=== PATIENT | female | born 1965 | race Caucasian/White ===

== ENCOUNTER 2024-11-11 16:09 | Inpatient (IN) | payer MEDICAID, OTHER ==
[~2024-11-11] VITALS: Ht 160 cm; Wt 77.3 kg
--- NOTE | 2024-11-11 16:19 | ED.PDOC ---
History of Present Illness HPI Comments 69-year-old female brought by paramedics because she was found unconscious hour ago by friends that she lives with. Friends thought she had a lost pulses so they started CPR. She was given Narcan prior to studio hand arrival. When paramedics arrived patient was answering questions. Patient is still confused. She did have methamphetamine prior to losing consciousness. Unable to get history from the patient. She denies taking any medication for any medical condition. 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 History Social History Smoker: Cigarettes Alcohol: Denies ETOH Use Drugs: Methamphetamine Unable to Obtain due to: Altered Mental Status Physical Exam General Appearance: Moderate Distress HEENT: Normal ENT Inspection, Pharynx Normal, TMs Normal Neck: Full Range of Motion, Non-Tender, Normal, Normal Inspection Respiratory: Chest Non-Tender, Lungs Clear, No Accessory Muscle Use, No Respiratory Distress, Normal Breath Sounds Cardiovascular: No Edema, No JVD, No Murmur, No Gallop, Normal Peripheral Pulses, Regular Rate/Rhythm Breast Exam: Deferred Gastrointestinal: No Organomegaly, Non Tender, No Pulsatile Mass, Normal Bowel Sounds, Soft Genitalia: Deferred Pelvic: Deferred Rectal: Deferred Extremities: No pedal edema Musculoskeletal : Apperance: Normal Neurologic: Disoriented Cerebellar Function: NOT DONE Reflexes: NOT DONE Skin: Normal Color Peripheral Pulses: 3+ Radial (R), 3+ Radial (L) Lymphatic: No Adenopathy Was a procedure done? Was a procedure done?: No EKG EKG : Pulse Rate (adult): 80 [place]: Normal Cardiac Rhythm: NSR Differential Dx Considerations may include: Drug use Electrolyte imbalance X-Ray, Labs, Meds, VS Vital Signs Date Time Temp Pulse Resp B/P (MAP) Pulse Ox O2 Delivery O2 Flow Rate FiO2 11/11/24 16:19 80 11/11/24 16:15 80 11/11/24 16:13 98.2 92 16 129/78 (95) 97 98.2 Lab Test 11/11/24 16:33 Range/Units White Blood Count Pending Red Blood Count Pending Hemoglobin Pending Hematocrit Pending Mean Corpuscular Volume Pending Mean Corpuscular Hemoglobin Pending Mean Corpuscular Hemoglobin Concent Pending Red Cell Distribution Width Pending Platelet Count Pending Mean Platelet Volume Pending Neutrophils (%) (Auto) Pending Lymphocytes (%) (Auto) Pending Monocytes (%) (Auto) Pending Basophils (%) (Auto) Pending Neutrophils # (Auto) Pending Lymphocytes # (Auto) Pending Monocytes # (Auto) Pending Plasma/Serum Blood Alcohol Pending Patient disoriented. Meth use. Vitals stable. Blood pressure within normal limits. Heart rate normalized. Saturation normalized. Unable to get history. Establish intravenous access. Was given fluids. Was given Narcan. Waiting for family. Continue to monitor. EKG reviewed does not show any acute changes. Time of 1ST Reevaluation: 16:19 Reevaluation 1ST: Unchanged Patient Education/Counseling: Other (Disoriented) Family Education/Counseling: No Family Present Departure 1 Departure Time of Disposition: 16:19 Impression: Primary Impression: Metabolic encephalopathy Additional Impression: Methamphetamine use Disposition: ADMITTED INPATIENT Admit to: Med Surg Condition: Guarded Critical Care Note Critical Care Time?: Yes (45 min-critical care time only) Critical care comment: Disoriented Narcan Stability Stability form required: No Heart Score Heart Score: Heart Score Response (Comments) Value History Slightly Suspicious 0 EKG Normal 0 Age >65 2 Risk Factors 1 or 2 risk factors 1 Troponin Normal limit 0 Total 3 CHRISTINA EASTMAN MD Nov 11, 2024 16:19
[2024-11-11 16:48] LABS: Basophils # (auto) 0.1 10 ^3/uL (0-0.2); Basophils % (auto) 1.2 % (0.0-2.0); Eosinophils # (auto) 0.3 10 ^3/uL (0-0.8); Eosinophils % (auto) 2.8 % (0.0-7.0); Hematocrit 40.7 % (36.0-46.0); Hemoglobin 13.2 g/dL (12.2-16.2); Lymphocytes # (auto) 1.9 10 ^3/uL (0.4-5.4); Lymphocytes % (auto) 19.3 % (10.0-50.0); Mean Corpuscular Hemoglobin 28.4 pg (28.0-32.0); Mean Corpuscular Hgb Conc. 32.3 g/dL (32.0-36.0); Monocytes # (auto) 0.4 10 ^3/uL (0-1.3); Monocytes % (auto) 4.2 % (0.0-12.0); Neutrophils # (auto) 7.2 10 ^3/uL (1.6-8.6); Neutrophils % (auto) 72.5 % (37.0-80.0); Platelet Count (auto) 348 10^3/uL (140-450); Red Blood Cells 4.63 10^6/uL (4.0-5.20); Red Cell Distribution Width 15.8 % (11.8-14.3)
[2024-11-11] MEDS: NALOXONE HCL 1MG/ML 2ML SYRINGE IV ONE (17:15)
[2024-11-11] MEDS: ONDANSETRON HCL 4 MG/2 ML VIAL IV ONE (17:16)
[2024-11-11] MEDS: SODIUM CHLORIDE 0.9% 1,000 ML IVB ONE (17:16)
[2024-11-11 17:33] VITALS: PULSE 77; RESP 14; O2SAT 96
--- NOTE | 2024-11-11 17:34 | DVH ---
CHEST RADIOGRAPH Indication: sob Technique: Single frontal view of the chest was obtained COMPARISON: None FINDINGS: Lines and Tubes: None Lungs: Clear Pleura: No effusion. No pneumothorax. Cardiomediastinal contours: Unremarkable Bones: Unremarkable IMPRESSION: No abnormality demonstrated.
--- NOTE | 2024-11-11 17:41 | DVH ---
CT HEAD WITHOUT CONTRAST INDICATION: altered COMPARISON: None TECHNIQUE: CT of the head without intravenous contrast. RADIATION DOSE: CTDIvol: mGy, DLP: mGy*cm FINDINGS: There is no evidence of intracranial hemorrhage, infarct, extra-axial collection, mass effect, midli ne shift, herniation or hydrocephalus. The ventricles, sulci and cisterns are normal. The michael-white differentiation is normal. Visualized paranasal sinuses and mastoid air cells are clear. Soft tissues and osseous structures are unremarkable. IMPRESSION: No intracranial abnormality identified.
[2024-11-11 18:32] LABS: Amphetamine Screen, Urine Pos (NEGATIVE); Barbiturate Scree,Urine Neg (NEGATIVE); Benzodiazephine Screen, Urine Neg (NEGATIVE); Cannabinoid Screen, Urine Neg (NEGATIVE); Cocaine Screen, Urine Neg (NEGATIVE); Opiate Scree,Urine Neg (NEGATIVE); Phencyclidine Screen, Urine Neg (NEGATIVE)
[2024-11-11 18:37] LABS: Urine Bacteria FEW /hpf (None Seen); Urine Blood Negative /uL (Negative); Urine Budding Yeast OCCASIONAL /hpf (None Seen); Urine Clarity Clear (Clear); Urine Color Yellow (Yellow); Urine Hyaline Cast FEW /lpf (0 - 2); Urine Mucus FEW (None Seen); Urine Protein, UAD TRACE (Negative); Urine Specific Gravity 1.024 (1.001-1.035); Urine Squamous Epithelial Cell FEW /hpf (<5); Urine Urobilinogen Normal (Negative); Urine WBC 9 /HPF (0-5); Urine pH 5.5 (5.0-9.0)
[2024-11-11] MEDS: SODIUM CHLORIDE 0.9% 1,000 ML IV ONE (19:30)
[2024-11-11 19:45] VITALS: PULSE 83; RESP 12; O2SAT 99
--- NOTE | 2024-11-11 23:56 | ECG ---
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
--- NOTE | 2024-11-12 01:05 | DVHHP2 ---
History of Present Illness Reason for Visit: Altered mental status History of Present Illness 69-year-old year old female presents for evaluation of altered mental status. Patient was found unresponsive by friends that she lives with. CPR was initiated. On the feel patient was given Narcan with positive response. Patient is currently alert oriented answering questions. No headache or blurred vision. No unilateral weakness. No chest pain or shortness for breath. Past Medical History Denies Past Surgical History Denies Family History Noncontributory Smoke: <1 pack per day ALCOHOL: occassional Drugs: Other (Amphetamine) Review of Systems Review of Systems Review of systems are currently negative otherwise addressed in HPI. Allergies: Coded Allergies: NO KNOWN ALLERGIES (Unverified , 11/11/24) Medications Current Medications Medications Dose Ordered Sig/Nayely Route Start Time Stop Time Status Last Admin Dose Admin Ondansetron HCl 4 mg Q4HP PRN IV 11/11/24 19:30 Exam Vital Signs Vital Signs Date Time Temp Pulse Resp B/P (MAP) Pulse Ox O2 Delivery O2 Flow Rate FiO2 11/12/24 00:15 76 11/12/24 00:00 18 122/83 (96) 100 11/11/24 19:45 Room Air* 0 21 11/11/24 17:33 98.2 98.2 Exam Gen: 69-year-old female in no apparent distress Skin: Warm, dry, normal color and texture, no rash. HEENT: Normocephalic atraumatic, mucous membranes moist and pink. Neck: Cervical and supraclavicular nodes normal without enlargement, trachea is midline, thyroid gland is normal without masses. Pulmonary: Clear to auscultation and percussion bilaterally. Cardiac: Regular rate and rhythm. No murmur Abdomen: Soft, nontender, nondistended, bowel sounds present all 4 quadrants, no guarding, no rigidity, no organomegaly. Extremities: No cyanosis, clubbing, no edema Neuro: Cranial nerves II through XII grossly intact, normal affect and speech, no focal motor deficits. Labs/Xrays ORDERING PHYSICIAN: CHRISTINA EASTMAN MD PROCEDURE(s): CXRP - CHEST PORTABLE REASON: sob ORDER NUMBER(s): [id number], ACCESSION NUMBER(s): [id number] CHEST RADIOGRAPH Indication: sob Technique: Single frontal view of the chest was obtained COMPARISON: None FINDINGS: Lines and Tubes: None Lungs: Clear Pleura: No effusion. No pneumothorax. Cardiomediastinal contours: Unremarkable Bones: Unremarkable IMPRESSION: No abnormality demonstrated. RING PHYSICIAN: CHRISTINA EASTMAN MD PROCEDURE(s): HWOCT - HEAD WITHOUT CONTRAST REASON: altered ORDER NUMBER(s): [id number], ACCESSION NUMBER(s): [id number] CT HEAD WITHOUT CONTRAST INDICATION: altered COMPARISON: None TECHNIQUE: CT of the head without intravenous contrast. RADIATION DOSE: CTDIvol: mGy, DLP: mGy*cm FINDINGS: There is no evidence of intracranial hemorrhage, infarct, extra-axial collection, mass effect, midline shift, herniation or hydrocephalus. The ventricles, sulci and cisterns are normal. The michael-white differentiation is normal. Visualized paranasal sinuses and mastoid air cells are clear. Soft tissues and osseous structures are unremarkable. IMPRESSION: No intracranial abnormality identified. Labs Test 11/11/24 17:18 11/11/24 16:33 Range/Units Urine Color Yellow Yellow Urine Clarity Clear Clear Urine pH 5.5 5.0-9.0 Urine Specific [place] 1.024 1.001-1.035 Urine Protein Trace H Negative Urine Ketones Negative Negative Urine Blood Negative Negative /uL Urine Nitrite Negative Negative Urine Bilirubin Negative Negative Urine Urobilinogen Normal Negative mg/dL Urine Leukocyte Esterase Trace Negative /uL Urine RBC 3 0 - 4 /hpf Urine Microscopic WBC 9 H 0-5 /HPF Urine Squamous Epithelial Cells Few <5 /hpf Urine Bacteria Few H None Seen /hpf Urine Hyaline Casts Few 0 - 2 /lpf Urine Mucus Few None Seen Urine Yeast (Budding) Occasional None Seen /hpf Urine Glucose 3+ H Normal mg/dL Urine Opiates Screen Neg NEGATIVE Urine Fentanyl Screen Pos NEGATIVE Urine Barbiturates Screen Neg NEGATIVE Urine Phencyclidine Screen Neg NEGATIVE Urine Amphetamines Screen Pos NEGATIVE Urine Benzodiazepines Screen Neg NEGATIVE Urine Cocaine Screen Neg NEGATIVE Urine Cannabinoids Screen Neg NEGATIVE White Blood Count 10.0 4.4-10.8 10^3/uL Red Blood Count 4.63 4.0-5.20 10^6/uL Hemoglobin 13.2 12.2-16.2 g/dL Hematocrit 40.7 36.0-46.0 % Mean Corpuscular Volume 88.0 80.0-100.0 fL Mean Corpuscular Hemoglobin 28.4 28.0-32.0 pg Mean Corpuscular Hemoglobin Concent 32.3 32.0-36.0 g/dL Red Cell Distribution Width 15.8 H 11.8-14.3 % Platelet Count 348 140-450 10^3/uL Mean Platelet Volume 8.4 6.9-10.8 fL Neutrophils (%) (Auto) 72.5 37.0-80.0 % Lymphocytes (%) (Auto) 19.3 10.0-50.0 % Monocytes (%) (Auto) 4.2 0.0-12.0 % Eosinophils (%) (Auto) 2.8 0.0-7.0 % Basophils (%) (Auto) 1.2 0.0-2.0 % Neutrophils # (Auto) 7.2 1.6-8.6 10 ^3/uL Lymphocytes # (Auto) 1.9 0.4-5.4 10 ^3/uL Monocytes # (Auto) 0.4 0-1.3 10 ^3/uL Eosinophils # (Auto) 0.3 0-0.8 10 ^3/uL Basophils # (Auto) 0.1 0-0.2 10 ^3/uL Nucleated Red Blood Cells 0.0 % Plasma/Serum Blood Alcohol < 3.0 <10 mg/dL Assessment/Plan Assessment/Plan Assessment Toxic encephalopathy Polysubstance abuse Plan Admit the patient to [facility] to the hospitalist Maintenance IV fluids Continue treatment per orders. Plan discussed with: Patient My Orders Orders - [facility] Procedure Category Date Status Time Regular Diet DIET 11/12/24 Transmitted Breakfast Basic Metabolic Panel LAB 11/12/24 Logged 04:00 Sodium Chloride 0.9% PHA 11/11/24 In Process 19:30 Admit ADMIT 11/11/24 Transmitted 19:19 Ondansetron Hcl PHA 11/11/24 In Process (Zofran) 19:30 Condition: Stable MONI 11/11/24 In Process 19:19 Bedrest With Bathroom MONI 11/11/24 In Process Privileg 19:19 Date of Service: Nov 11, 2024 Billing Provider: MIRTA ALMARAZ Common Visit Codes: [id number] INP/OBS CARE (MOD) MIRTA ALMARAZ Nov 12, 2024 01:05
[2024-11-12] MEDS: ONDANSETRON HCL 4 MG/2 ML VIAL IV PRN (03:55)
[2024-11-12 06:18] LABS: Chloride 106 mmol/L (98-107); Potassium 4.3 mmol/L (3.5-5.1); Sodium 138 mmol/L (136-145)
[2024-11-12 06:19] LABS: Anion Gap 5 (5-15); Carbon Dioxide 27 mmol/L (20-31)
[2024-11-12 06:25] LABS: BUN/Creatinine Ratio 21.2 (10.0-20.0); Blood Urea Nitrogen 14 mg/dL (9-23)
[2024-11-12 07:04] LABS: Calcium 8.7 mg/dL (8.7-10.4); Glucose 112 mg/dL (74-106)
[2024-11-12 07:40] VITALS: PULSE 74; RESP 18; O2SAT 100
[2024-11-12 09:45] VITALS: BP 132/65; PULSE 70; RESP 16; TEMP 98.7; O2SAT 95
[2024-11-12 10:30] VITALS: BP 132/65; PULSE 70; RESP 16; TEMP 98.7; O2SAT 95
[2024-11-12 10:35] VITALS: PULSE 75; RESP 16
[2024-11-12 12:10] VITALS: BP 124/58; PULSE 78; RESP 16; TEMP 97.5; O2SAT 98
[2024-11-12] MEDS: diphenhdrAMINE HCL 25 MG CAP PO PRN (15:01)
[2024-11-12 16:08] VITALS: BP 116/64; PULSE 72; RESP 16; TEMP 97.6; O2SAT 100
--- NOTE | 2024-11-12 16:27 | DVHPN2 ---
Subjective 72-year-old female with a known history of polysubstance abuse presented to the hospital with altered mental status. Patient stated that she uses methamphetamine IV eventually she passed out, friend started CPR home she will have been eventually bed paramedics arrived patient was awake alert oriented after Narcan was given. Patient currently denies any symptoms besides hives. 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 Medications Current Medications Medications Dose Ordered Sig/Nayely Route Start Time Stop Time Status Last Admin Dose Admin Ondansetron HCl 4 mg Q4HP PRN IV 11/11/24 19:30 11/12/24 09:40 4 MG Diphenhydramine HCl 25 mg Q4HP PRN PO 11/12/24 14:30 11/12/24 15:01 25 MG Laboratory Results Laboratory Tests 11/11/24 16:33 11/12/24 05:38 Chemistry Test 11/12/24 05:38 Calcium Level 8.7 mg/dL (8.7-10.4) Urinalysis Test 11/11/24 17:18 Urine Color Yellow (Yellow) Urine Clarity Clear (Clear) Urine pH 5.5 (5.0-9.0) Urine Specific [place] 1.024 (1.001-1.035) Urine Protein Trace (Negative) H Urine Ketones Negative (Negative) Urine Blood Negative /uL (Negative) Urine Nitrite Negative (Negative) Urine Bilirubin Negative (Negative) Urine Urobilinogen Normal mg/dL (Negative) Urine Leukocyte Esterase Trace /uL (Negative) Urine RBC 3 /hpf (0 - 4) Urine Microscopic WBC 9 /HPF (0-5) H Urine Squamous Epithelial Cells Few /hpf (<5) Urine Bacteria Few /hpf (None Seen) H Urine Hyaline Casts Few /lpf (0 - 2) Urine Mucus Few (None Seen) Urine Yeast (Budding) Occasional /hpf (None Urine Glucose 3+ mg/dL (Normal) H Assessment/Plan Assessment/Plan 59-year-old female with a chronic history of polysubstance abuse presented to the hospital with altered mental status found to have 1. Acute toxic encephalopathy secondary to methamphetamine use 2. Generally hives 3. Polysubstance abuse -Benadryl p.r.n., social sepsis consultation for drug rehab as an outpatient -close monitoring of the patient. Plan discussed with: Patient My Orders Orders - ESTELLE NEAL MD Procedure Category Date Status Time Diphenhdramine PHA 11/12/24 In Process Capsule (Benadryl 14:30 Date of Service: Nov 12, 2024 Billing Provider: ESTELLE NEAL MD Common Visit Codes: [id number] INP/OBS CARE(MOD) ESTELLE NEAL MD Nov 12, 2024 16:27
[2024-11-13] VITALS (8 sets, daily range): BP systolic 112–156; BP diastolic 60–82; PULSE 80–93; RESP 16–18; TEMP 36.7; O2SAT 93–100
--- NOTE | 2024-11-13 16:26 | DVHDS2 ---
Discharge Summary Date of Admission Nov 11, 2024 at 19:19 Date of Discharge: Nov 13, 2024 Labs/Diagnostic Data: Laboratory Results Test 11/12/24 05:38 11/11/24 17:18 11/11/24 16:33 Sodium Level 138 mmol/L (136-145) Potassium Level 4.3 mmol/L (3.5-5.1) Chloride Level 106 mmol/L (98-107) Carbon Dioxide Level 27 mmol/L (20-31) Anion Gap 5 (5-15) Blood Urea Nitrogen 14 mg/dL (9-23) Creatinine 0.66 mg/dL (0.550-1.02) Glomerular Filtration Rate Calc 102 mL/min (>90) BUN/Creatinine Ratio 21.2 (10.0-20.0) Serum Glucose 112 mg/dL (74-106) Calcium Level 8.7 mg/dL (8.7-10.4) Urine Color Yellow (Yellow) Urine Clarity Clear (Clear) Urine pH 5.5 (5.0-9.0) Urine Specific [place] 1.024 (1.001-1.035) Urine Protein Trace (Negative) Urine Ketones Negative (Negative) Urine Blood Negative /uL (Negative) Urine Nitrite Negative (Negative) Urine Bilirubin Negative (Negative) Urine Urobilinogen Normal mg/dL (Negative) Urine Leukocyte Esterase Trace /uL (Negative) Urine RBC 3 /hpf (0 - 4) Urine Microscopic WBC 9 /HPF (0-5) Urine Squamous Epithelial Cells Few /hpf (<5) Urine Bacteria Few /hpf (None Seen) Urine Hyaline Casts Few /lpf (0 - 2) Urine Mucus Few (None Seen) Urine Yeast (Budding) Occasional /hpf (None Urine Glucose 3+ mg/dL (Normal) Urine Opiates Screen Neg (NEGATIVE) Urine Fentanyl Screen Pos (NEGATIVE) Urine Barbiturates Screen Neg (NEGATIVE) Urine Phencyclidine Screen Neg (NEGATIVE) Urine Amphetamines Screen Pos (NEGATIVE) Urine Benzodiazepines Screen Neg (NEGATIVE) Urine Cocaine Screen Neg (NEGATIVE) Urine Cannabinoids Screen Neg (NEGATIVE) White Blood Count 10.0 10^3/uL (4.4-10.8) Red Blood Count 4.63 10^6/uL (4.0-5.20) Hemoglobin 13.2 g/dL (12.2-16.2) Hematocrit 40.7 % (36.0-46.0) Mean Corpuscular Volume 88.0 fL (80.0-100.0) Mean Corpuscular Hemoglobin 28.4 pg (28.0-32.0) Mean Corpuscular Hemoglobin Concent 32.3 g/dL (32.0-36.0) Red Cell Distribution Width 15.8 % (11.8-14.3) Platelet Count 348 10^3/uL (140-450) Mean Platelet Volume 8.4 fL (6.9-10.8) Neutrophils (%) (Auto) 72.5 % (37.0-80.0) Lymphocytes (%) (Auto) 19.3 % (10.0-50.0) Monocytes (%) (Auto) 4.2 % (0.0-12.0) Eosinophils (%) (Auto) 2.8 % (0.0-7.0) Basophils (%) (Auto) 1.2 % (0.0-2.0) Neutrophils # (Auto) 7.2 10 ^3/uL (1.6-8.6) Lymphocytes # (Auto) 1.9 10 ^3/uL (0.4-5.4) Monocytes # (Auto) 0.4 10 ^3/uL (0-1.3) Eosinophils # (Auto) 0.3 10 ^3/uL (0-0.8) Basophils # (Auto) 0.1 10 ^3/uL (0-0.2) Nucleated Red Blood Cells 0.0 % Plasma/Serum Blood Alcohol < 3.0 mg/dL (<10) Other Laboratory Tests 11/12/24 05:38 11/11/24 16:33 Brief Hx & Hospital Course: 59-year-old female with a chronic history of polysubstance abuse presented to the hospital with altered mental status found to have acute toxic encephalopathy secondary to methamphetamine use. Patient also had asymptomatic bacteriuria but denies any symptoms of burning urination on fevers chills. Patient has known history of polysubstance abuse. Patient was eventually and recently admitted currently back to [facility]. Patient is requesting to go home. 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 Condition at Discharge: Stable Final Diagnosis/Problems List 59-year-old female with a chronic history of polysubstance abuse presented to the hospital with altered mental status found to have 1. Acute toxic encephalopathy secondary to methamphetamine use 2. Generally hives 3. Polysubstance abuse Discharge Disposition: Home SNF Discharge Will this Physician continue t: No Discharge Instruct/Medications Diet: Cardiac 2g Na,low cholest Activity: No Restrictions, As Tolerated Discharge Statement: "Patient was advised to return to the ER or call 911 if any headaches, dizziness, shortness of breath, chest pain, abdominal pain, bleeding, fevers, or worsening of medical condition. Patient was counseled about treatment plan, medications, possible side effects, patientverbalized understanding. All questions were answered to the best of my ability. This discharge took greater then 30 minutes in planning, reviewing documentation, counseling the patient, and discussing with other team members." ASSESSMENT ASSESSMENT Assessment 59-year-old female with a chronic history of polysubstance abuse presented to the hospital with altered mental status found to have 1. Acute toxic encephalopathy secondary to methamphetamine use 2. Generally hives 3. Polysubstance abuse Date of Service: Nov 13, 2024 Billing Provider: ESTELLE NEAL MD Common Visit Codes: [id number] DISCH DAY >30min ESTELLE NEAL MD Nov 13, 2024 16:26
== END 2024-11-13 19:37 | disposition home or self-care (01) | DRG 52 ==
LOC: ER 16:09 → EDBD 16:09 → OVERFLOW 19:19 → CENTRAL 11-12 23:29
PROVIDERS: ADMIT Internal Medicine; ATTEND Internal Medicine
DX: G92.8 Other toxic encephalopathy (principal); F15.90 Other stimulant use, unspecified, uncomplicated; F19.10 Other psychoactive substance abuse, uncomplicated; T43.655A Adverse effect of methamphetamines, initial encounter; F17.210 Nicotine dependence, cigarettes, uncomplicated; L50.9 Urticaria, unspecified; Y92.89 Other specified places as the place of occurrence of the external cause
CPT/HCPCS: 36415; 70450; 71045; 80048; 80307; 80320; 81001; 85025; 93005; 96361; 96374; 96375; 99291; G0378; J2405